=== PATIENT | female | born 1975 | race Caucasian/White ===

== ENCOUNTER → 2017-01-18 | Day surgery (SDC) | payer OTHER ==
[2017-01-18 07:24] LABS: HCT 40.1 % (37.0-47.0); HGB 13.5 g/dl (12.5-16.0); MCH 34.6 pg (25.0-31.0); MCHC 33.7 g/dL (32.0-36.0); MCV 102.8 fL (78.0-100.0); RBC 3.9 M/uL (4.20-5.40); RDW 11.7 % (11.5-14.0)
[2017-01-18 07:46] LABS: ALBUMIN 4.8 g/dL (3.5-5.0); BILIRUBIN - TOTAL 0.8 mg/dL (0.1-1.0); CREATININE 0.9 mg/dL (0.5-1.0); GLOBULIN (CALCULATION) 2.5 g/dL (2.2-4.2); POTASSIUM 4.6 mmol/L (3.5-5.1); TOTAL PROTEIN 7.3 g/dL (6.4-8.3)
== END | disposition home or self-care (01) ==
LOC: FAS 07:21
PROVIDERS: Surgery
DX: K29.50 Unspecified chronic gastritis without bleeding (principal); K21.9 Gastro-esophageal reflux disease without esophagitis; K58.9 Irritable bowel syndrome, unspecified; E03.9 Hypothyroidism, unspecified; J45.909 Unspecified asthma, uncomplicated; Z90.710 Acquired absence of both cervix and uterus; Z87.891 Personal history of nicotine dependence; Z90.49 Acquired absence of other specified parts of digestive tract; Z83.2 Family history of diseases of the blood and blood-forming organs and certain disorders involving the immune mechanism; Z81.1 Family history of alcohol abuse and dependence; Z82.61 Family history of arthritis; Z82.5 Family history of asthma and other chronic lower respiratory diseases; Z82.49 Family history of ischemic heart disease and other diseases of the circulatory system; Z79.899 Other long term (current) drug therapy
CPT/HCPCS: 36415; 80053; 88305; 88312; J2704

== ENCOUNTER → 2022-03-29 | Day surgery (SDC) | payer OTHER ==
[~2022-03-29] VITALS: Ht 162.6 cm; Wt 77.2 kg
[~2022-03-29] MED LIST: COLESTIPOL HCL1 GM PO; FLUOXETINE HCL10 M1 PO; HCTZ25 MG PO; LOSARTAN POTASS50 MG PO; NP THYROID60 MG PO; PANTOPRAZOLE SO40 MG PO
[2022-03-29 08:52] LABS: HCG (URINE) SCREEN NEGATIVE (NEGATIVE)
[2022-03-29 09:39] LABS: HCT 40.8 % (37.0-47.0); HGB 13.7 g/dl (12.5-16.0); MCHC 33.6 g/dL (32.0-36.0); MCV 104.3 fL (78.0-100.0); MPV 8.9 fL (6.0-9.5); RBC 3.91 M/uL (4.20-5.40); RDW 11.5 % (11.5-14.0); WBC 4.9 K/uL (4.0-10.5)
[2022-03-29 09:51] LABS: ALBUMIN 4.3 g/dL (3.4-5.0); BILIRUBIN - TOTAL 0.5 mg/dL (0.2-1.0); BUN/CREAT RATIO (CALC) 26.6 RATIO; CREATININE 0.79 mg/dL (0.51-0.95); GLOBULIN (CALCULATION) 3.5 g/dL; POTASSIUM 3.7 mmol/L (3.5-5.1); TOTAL PROTEIN 7.8 g/dL (6.4-8.2)
== END | disposition home or self-care (01) ==
LOC: FAS 08:28
PROVIDERS: Orthopaedic Surgery
DX: S83.512A Sprain of anterior cruciate ligament of left knee, initial encounter (principal); S83.232A Complex tear of medial meniscus, current injury, left knee, initial encounter; M94.262 Chondromalacia, left knee; M79.4 Hypertrophy of (infrapatellar) fat pad; X58.XXXA Exposure to other specified factors, initial encounter
CPT/HCPCS: 36415; 80053; 84703; C1713; J0690; J1100; J1170; J1885; J2250; J2405; J2704; J2795; J7120